=== PATIENT | male | born 1965 | race Caucasian/White ===

== ENCOUNTER 2016-10-02 09:00 | Day surgery (SDC) | payer BC ==
[~2016-10-02] VITALS: Ht 165.1 cm; Wt 68.1 kg
[~2016-10-02 09:00] MED LIST: NO CURRENT MEDS
[2016-10-02 10:46] VITALS: Ht 165.1 cm; Wt 68.1 kg
[2016-10-02 10:53] VITALS: BP 135/82; PULSE 58; RESP 13
[2016-10-02] MEDS ORDERED: MIDAZOLAM 1 MG/ML 2 ML INJ ONE ×3 (11:36→11:37)
--- NOTE | 2016-10-02 11:36 | OPPN ---
Date/Time of Note Date/Time of Note DATE: 10/02/16 TIME: 11:34 Operative Report Preoperative Diagnosis Abdominal pain Positive occult blood in stool Postoperative Diagnosis Gastritis with erosions Internal hemorrhoids Operation/Procedure Performed Esophagogastroduodenoscopy and biopsy Colonoscopy Provider: DAINA OGDEN MD Anesthesia Type: moderate sedation Estimated blood loss: none Transfusion Required: no Specimens Gastric mucosal biopsy Grafts/Implants: none Complications: no DAINA OGDEN MD Oct 02, 2016 11:36
[2016-10-02] MEDS ORDERED: FENTAnyl 50 MCG/ML VIAL ONE (11:37)
[2016-10-02 11:56] VITALS: BP 117/75; RESP 18
--- NOTE | 2016-10-02 12:16 | GILP ---
DATE OF PROCEDURE: 10/02/2016 PROCEDURE PERFORMED: 1. Esophagogastroduodenoscopy and biopsy. 2. Colonoscopy. SURGEON: Esha Burt MD PREOPERATIVE DIAGNOSIS: 1. Abdominal pain. 2. Positive occult blood in stool. POSTOPERATIVE DIAGNOSES: 1. Gastritis with erosions. 2. Gastric mucosal biopsies were taken for Helicobacter pylori test. 3. Colonoscopy all the way to the cecum. 4. Internal hemorrhoids. 5. No colon neoplasm was identified. INDICATION: Mr. Benito Abreu is a 51-year-old male patient who had upper abdominal pain not responding to therapy. He was also noted to have positive occult blood in stool. The procedures and possible complications were well explained to the patient. He understood and consented to the procedures. DESCRIPTION OF PROCEDURE: Under the influence of fentanyl and Versed, the gastroscope was carefully introduced into the esophagus. Under direct vision it was advanced to the stomach into the pylorus into the duodenal bulb and descending duodenum. Findings: Esophagus mucosa was normal. Stomach, the patient had gastritis with erosions. Gastric mucosal biopsies were taken for Helicobacter pylori test. Duodenum was normal. The colonoscope was carefully introduced the rectum under direct vision it was advanced all the way to the cecum. Findings: The patient had internal hemorrhoids. No colon neoplasm was identified. The patient tolerated the procedures very well. There were no complications from the procedures. At the end of procedures, he was awake with stable vital signs. He was discharged home in care of his family. IMPRESSION: Please see postoperative diagnoses. PLAN: 1. Nexium 24 hours p.o. q.a.m. 2. Await Helicobacter pylori test report. 3. Next screening colonoscopy in 10 years. Dictated By: MD ISIDORO Vincent/mariel/donald /Document#: [id number]
== END 2016-10-02 14:26 | disposition home or self-care (01) ==
LOC: GIL 09:00
PROVIDERS: ATTEND Internal Medicine Gastroenterology
DX: K29.70 Gastritis, unspecified, without bleeding (principal); K64.8 Other hemorrhoids; R19.5 Other fecal abnormalities
CPT/HCPCS: 43239; 45378; J2250; J3010; Z7610; 87081